=== PATIENT | female | born 1995 ===

== ENCOUNTER 2020-04-28 12:08 | Outpatient (CLI) | payer MEDICAID, SELFPAY ==
[2020-05-01 01:00] LABS: SARS-CoV-2 RNA Undetected (Undetected); SARS-CoV-2 Specimen Source Nasopharynx
== END 2020-04-28 12:28 ==
PROVIDERS: Visit Provider Family Medicine
DX: Z11.59 Encounter for screening for other viral diseases (principal)
CPT/HCPCS: U0003